=== PATIENT | female | born 1980 | race Caucasian/White ===

== ENCOUNTER 2017-08-29 14:06 | Emergency (ER) | payer OTHER ==
--- NOTE | 2017-08-29 15:48 | ER Document Report ---
HPI - HPI Patient complains to provider of: possible infection surgical site Onset: This morning Pain Level: 4 Context: 37 yo female with carpal tunnel release 12 [facility] has increased red , pressure, possible pus collection proximal wound volar right wrist. No fever. Some red streaks above it. Associated Symptoms: None Exacerbated by: Movement Relieved by: Denies - ROS ROS below otherwise negative: Yes Systems Reviewed and Negative: Yes All other systems reviewed and negative - REPRODUCTIVE LMP: 2 days Past Medical History - General Information source: Patient - Social History Smoking Status: Never Smoker Frequency of alcohol use: None Drug Abuse: None Lives with: Spouse/Significant other Family History: Reviewed & Not Pertinent - Medical History Medical History: Negative Past Surgical History: Reports: Hx Orthopedic Surgery - 08-13 right carpal tunnel reliease Vertical Provider Document - CONSTITUTIONAL Agree With Documented VS: Yes Exam Limitations: No Limitations General Appearance: No Apparent Distress - INFECTION CONTROL TRAVEL OUTSIDE OF THE [place] IN LAST 30 DAYS: No - HEENT HEENT: Normocephalic - NECK Neck: Supple - RESPIRATORY O2 Sat by Pulse Oximetry: 100 - MUSCULOSKELETAL/EXTREMETIES Musculoskeletal/Extremeties: MAEW, FROM, Tender - inflamed volar right wrist vertical suture wound, proximal aspect with pus under devitalized tissue - NEURO Level of Consciousness: Awake, Alert, Appropriate Course - Re-evaluation Re-evalutation: 08/30/17 19:07 gently deroofed the inflamed area with small mount pus out, washed with soap and water, healthy base of the wound. pt states the pressure pain is gone. - Vital Signs Vital signs: Temp Pulse Resp BP Pulse Ox 98.2 F 72 20 127/72 H 100 08/29/17 14:13 08/29/17 14:13 08/29/17 14:13 08/29/17 14:13 08/29/17 14:13 Discharge - Discharge Clinical Impression: right volar wrist pustule, Lymphangitis Post op infection Qualifiers: Encounter type: initial encounter Qualified Code(s): T81.4XXA - Infection following a procedure, initial encounter Condition: Good Disposition: HOME, SELF-CARE Instructions: Cephalexin ([facility]), Warm Packs ([facility]) Additional Instructions: see your surgeon on friday return to the er if worse dry dressing take the Keflex 500mg four times per day Prescriptions: Cephalexin Monohydrate [Keflex 500 mg Capsule] 500 mg PO QID #28 capsule Referrals: CHRISSIE ALEXANDER PA-C [Primary Care Provider] - Follow up as needed
[2017-08-29] MEDS ORDERED: CEPHALEXIN 500 MG CAPSULE PO ONE (16:20)
[2017-08-29 17:00] VITALS: BP 132/77
== END 2017-08-29 16:58 | disposition home or self-care (01) ==
LOC: ER 14:06
DX: T81.4XXA Infection following a procedure, initial encounter (principal); L08.9 Local infection of the skin and subcutaneous tissue, unspecified; I89.1 Lymphangitis; Z98.890 Other specified postprocedural states
CPT/HCPCS: 87070; 87075; 87077; 87186; 87205; 99283